=== PATIENT | male | born 1970 | race African-American/Black ===

== ENCOUNTER 2020-05-09 15:11 | Emergency (ER) | payer MEDICAID ==
[~2020-05-09] VITALS: Ht 172.7 cm; Wt 91.0 kg
[2020-05-09] MEDS ORDERED: LIPITOR (15:15)
[2020-05-09] MEDS ORDERED: AMLODIPINE (15:15)
[2020-05-09 16:21] LABS: BASOPHILS % 0.8 % (0.0-2.0); EOSINOPHILS % 5.9 % (0.0-5.0); HEMATOCRIT. 38.7 % (42.0-52.0); HEMOGLOBIN. 13.2 g/dL (14.0-18.0); LYMPHOCYTES % 54.7 % (20.0-50.0); MEAN CORPUSCULAR HEMOGLOBIN 32.8 pg (28.0-32.0); MEAN CORPUSCULAR VOLUME 96.3 fL (80.0-94.0); MEAN PLATELET VOLUME 9.5 fl (7.4-10.4); MONOCYTES % 10.6 % (2.0-8.0); PLATELET 188 x1000/uL (130-400); RED BLOOD CELL COUNT 4.02 mill/uL (4.7-6.1); RED CELL DISTRIBUTION WIDTH 14.5 % (11.6-14.6)
[2020-05-09 16:28] LABS: CHLORIDE 110 mEq/L (98-107)
[2020-05-09 16:31] LABS: D-DIMER < 0.19 mg/L FEU (<0.50); PROTHROMBIN TIME 10.9 sec (9.6-11.0)
[2020-05-09 21:22] VITALS: BP 124/74
== END 2020-05-09 21:30 | disposition home or self-care (01) ==
LOC: ER 15:11 → EDBD 15:11 → ER 21:30
DX: R07.89 Other chest pain (principal); F17.200 Nicotine dependence, unspecified, uncomplicated; I10 Essential (primary) hypertension
CPT/HCPCS: 36415; 71045; 80053; 83880; 84484; 85025; 85379; 93005; 99285

== ENCOUNTER 2020-06-26 20:49 | Emergency (ER) | payer MEDICAID ==
[~2020-06-26] VITALS: Ht 177.8 cm; Wt 91.0 kg
[~2020-06-26 20:49] MED LIST: AMLODIPINE; LIPITOR
[2020-06-26 22:42] LABS: CHLORIDE 110 mEq/L (98-107)
[2020-06-26 23:09] LABS: BASOPHILS % 0.4 % (0.0-2.0); EOSINOPHILS % 8.3 % (0.0-5.0); HEMATOCRIT. 44.3 % (42.0-52.0); HEMOGLOBIN. 14.5 g/dL (14.0-18.0); LYMPHOCYTES % 46.9 % (20.0-50.0); MEAN CORPUSCULAR HEMOGLOBIN 28.9 pg (28.0-32.0); MEAN CORPUSCULAR VOLUME 88.1 fL (80.0-94.0); MONOCYTES % 7.9 % (2.0-8.0); NEUTROPHILS % 36.5 % (40.0-76.0); PLATELET 214 x1000/uL (130-400); RED BLOOD CELL COUNT 5.02 mill/uL (4.7-6.1); RED CELL DISTRIBUTION WIDTH 14.2 % (11.6-14.6)
[2020-06-27 02:22] VITALS: BP 136/85
== END 2020-06-27 02:25 | disposition home or self-care (01) ==
LOC: ER 20:49
DX: E78.00 Pure hypercholesterolemia, unspecified (principal); Z98.890 Other specified postprocedural states
CPT/HCPCS: 36415; 71045; 80053; 84484; 85025; 93005; 99285

== ENCOUNTER 2020-07-10 00:43 | Emergency (ER) | payer MEDICAID ==
[~2020-07-10] VITALS: Ht 177.8 cm; Wt 91.0 kg
[2020-07-10] MEDS ORDERED: ASPIRIN 81MG TABLET PO ONE (03:45)
[2020-07-10 03:53] LABS: BASOPHILS % 1.5 % (0.0-2.0); EOSINOPHILS % 6.6 % (0.0-5.0); HEMATOCRIT. 43.9 % (42.0-52.0); HEMOGLOBIN. 14.2 g/dL (14.0-18.0); LYMPHOCYTES % 47.5 % (20.0-50.0); MEAN CORPUSCULAR HEMOGLOBIN 28.7 pg (28.0-32.0); MEAN CORPUSCULAR VOLUME 88.8 fL (80.0-94.0); MEAN PLATELET VOLUME 8.9 fl (7.4-10.4); MONOCYTES % 9.2 % (2.0-8.0); NEUTROPHILS % 35.2 % (40.0-76.0); PLATELET 240 x1000/uL (130-400); RED BLOOD CELL COUNT 4.95 mill/uL (4.7-6.1); RED CELL DISTRIBUTION WIDTH 14.1 % (11.6-14.6)
[2020-07-10 03:59] LABS: CHLORIDE 110 mEq/L (98-107)
[2020-07-10 08:00] VITALS: BP 127/86
== END 2020-07-10 08:04 | disposition home or self-care (01) ==
LOC: ER 00:43
DX: R07.89 Other chest pain (principal); R00.2 Palpitations; R03.0 Elevated blood-pressure reading, without diagnosis of hypertension; E78.00 Pure hypercholesterolemia, unspecified; Z79.82 Long term (current) use of aspirin
CPT/HCPCS: 36415; 71045; 80053; 83880; 84484; 85025; 93005; 99285; Z7610